=== PATIENT | female | born 1970 | race Caucasian/White ===

== ENCOUNTER 2018-11-19 16:03 | Emergency (ER) | payer SELFPAY ==
--- NOTE | 2018-11-19 16:20 | PDOC ---
Rapid Medical Evaluation Chief Complaint: Eye Problem Time Seen by Provider: 11/19/18 16:18 Medical Evaluation: I have performed a brief in-person evaluation of this patient. The patient presents with a chief complaint of: L eye redness, tearing x 3 eyes ; slight itching of eye Pertinent physical exam findings: +injected L eye I have ordered the following: Nothing The patient will proceed to the ED for further evaluation. 11/19/18 16:19 Discharge Disposition - Discharge Dispostion Condition at time of disposition: Stable - Referrals - Patient Instructions - Post Discharge Activity
[2018-11-19 16:21] VITALS: BP 117/75; PULSE 73; TEMP 98; BMI 20.8
--- NOTE | 2018-11-19 16:35 | PDOC ---
History of Present Illness - General Chief Complaint: Eye Problem Stated Complaint: EYE PROBLEM Time Seen by Provider: 11/19/18 16:18 History Source: Patient Exam Limitations: No Limitations - History of Present Illness Initial Comments: 11/19/18 16:34 Pt is a 48 y/o F who presents with L eye redness, tearing, and itching for three days. Pt states that she felt like she had something stuck in her eye. States that she is sensitive to light. Denies fever, chill, pain with eye movements, visual changes. Past History - Travel Traveled outside of the country in the last 30 days: No Close contact w/someone who was outside of country & ill: No - Past Medical History Allergies/Adverse Reactions: Allergies Allergy/AdvReac Type Severity Reaction Status Date / Time No Known Allergies Allergy Verified 11/19/18 16:21 Home Medications: Ambulatory Orders Erythromycin 0.5% Eye Ointment [Erythromycin 0.5% Eye Ointment -] 1 applic OS TID #1 tube 11/19/18 COPD: No Disorders: No Kidney Stones: No - Surgical History Appendectomy: No Gastric Stapling: No - Immunization History Immunization Up to Date: No - Suicide/Smoking/Psychosocial Hx Smoking History: Never smoked Have you smoked in the past 12 months: No Information on smoking cessation initiated: No Hx Alcohol Use: No Drug/Substance Use Hx: No Review of Systems - Review of Systems Able to Perform ROS?: Yes Comments:: 11/19/18 16:35 CONSTITUTIONAL: Absent: fever, chills, diaphoresis, generalized weakness, malaise, loss of appetite HEENT: Present: L eye itching and tearing Absent: rhinorrhea, nasal congestion, throat pain, throat swelling, difficulty swallowing, mouth swelling, ear pain, eye pain , visual Changes CARDIOVASCULAR: Absent: chest pain, loss of consciousness, palpitations, irregular heart rate, peripheral edema RESPIRATORY: Absent: cough, shortness of breath, dyspnea with exertion, orthopnea, wheezing, stridor, hemoptysis GASTROINTESTINAL: Absent: abdominal pain, abdominal distension, nausea, vomiting, diarrhea, constipation, melena, hematochezia GENITOURINARY: Absent: dysuria, frequency, urgency, hesitancy, hematuria, flank pain, genital pain MUSCULOSKELETAL: Absent: myalgia, arthralgia, joint swelling SKIN: Absent: rash, itching, pallor HEMATOLOGIC/IMMUNOLOGIC: Absent: easy bleeding, easy bruising, lymphadenopathy, frequent infections ENDOCRINE: Absent: unexplained weight gain, unexplained weight loss, heat intolerance, cold intolerance NEUROLOGIC: Absent: headache, focal weakness or paresthesias, dizziness, unsteady gait, seizure, mental status changes, bladder or bowel incontinence PSYCHIATRIC: Absent: anxiety, depression, suicidal or homicidal ideation, hallucinations. Is the patient limited Beninese proficient: No *Physical Exam - Vital Signs Last Vital Signs Temp Pulse Resp BP Pulse Ox 98.0 F 73 18 117/75 100 11/19/18 16:19 11/19/18 16:19 11/19/18 16:19 11/19/18 16:19 11/19/18 16:19 - Physical Exam Comments: 11/19/18 16:35 GENERAL: The patient is awake, alert, and fully oriented, in no acute distress. HEAD: Normal with no signs of trauma. EYES: Pupils equal, round and reactive to light, extraocular movements intact, sclera anicteric, L conjunctiva injected. L Flouorscein stain positive for corneal abrasion to the 3 o clock positions. R eye is normal EXTREMITIES: Normal range of motion, no edema. NEUROLOGICAL: Normal speech, normal gait. PSYCH: Normal mood, normal affect. SKIN: Warm, Dry, normal turgor, no rashes or lesions noted. Moderate Sedation - Procedure Monitoring Vital Signs: Procedure Monitoring Vital Signs Temperature 98.0 F 11/19/18 16:19 Pulse Rate 73 11/19/18 16:19 Respiratory Rate 18 11/19/18 16:19 Blood Pressure 117/75 11/19/18 16:19 O2 Sat by Pulse Oximetry (%) 100 11/19/18 16:19 Medical Decision Making - Medical Decision Making 11/19/18 19:49 PT is a 48 y/o F presenting for a L eye pain for 3 days + corneal abrasion on the L eye Will treat with erythromycin ointment DC home with ophthalmology follow up I discussed the physical exam findings, ancillary test results and final diagnoses with the patient. I answered all of the patient's questions. The patient was satisfied with the care received and felt comfortable with the discharge plan and treatment plan. The Patient agrees to follow up with the primary care physician/specialist within 24-72 hours. Return precautions were given. *DC/Admit/Observation/Transfer Diagnosis at time of Disposition: Corneal abrasion Qualifiers: Encounter type: initial encounter Laterality: left Qualified Code(s): S05.02XA - Injury of conjunctiva and corneal abrasion without foreign body, left eye, initial encounter - Discharge Dispostion Disposition: HOME Condition at time of disposition: Stable Decision to Admit order: No - Prescriptions Prescriptions: Erythromycin 0.5% Eye Ointment [Erythromycin 0.5% Eye Ointment -] 1 applic OS TID #1 tube - Referrals Referrals: Gale Figueroa MD [Staff Physician] - Justin Lucas MD [Staff Physician] - ON STAFF,NOT [Primary Care Provider] - - Patient Instructions Printed Discharge Instructions: DI for Corneal Abrasion Additional Instructions: You have a corneal abrasion on your L eye Use the eye ointment three times a day Follow up with ophthalmology tomorrow Return to the ED for any new or worsening symptoms - Post Discharge Activity Forms/Work/School Notes: Back to Work
[2018-11-19] MEDS ORDERED: TETRACAINE 0.5% OPHTH SOLN 2 ML BOTTLE OS ONE (16:49)
== END 2018-11-19 17:25 | disposition home or self-care (01) ==
LOC: JERFT 16:03
DX: S05.02XA Injury of conjunctiva and corneal abrasion without foreign body, left eye, initial encounter (principal); X58.XXXA Exposure to other specified factors, initial encounter; Y93.89 Activity, other specified; Y92.89 Other specified places as the place of occurrence of the external cause
CPT/HCPCS: 99281-25

== ENCOUNTER 2022-11-21 20:00 | Emergency (ER) | payer OTHER ==
[2022-11-21 20:27] VITALS: BP 105/77; PULSE 86; RESP 20; TEMP 99.8; BMI 24.4
== END 2022-11-21 22:44 | disposition home or self-care (01) ==
LOC: JER 20:00
DX: J09.X2 Influenza due to identified novel influenza A virus with other respiratory manifestations (principal)
CPT/HCPCS: 0241U-QW; 99283-25

== ENCOUNTER 2024-02-13 05:18 | Emergency (ER) | payer OTHER ==
[2024-02-13 05:30] VITALS: BP 129/80; PULSE 67; RESP 20; TEMP 98; BMI 22.6
[2024-02-13] MEDS ORDERED: ACETAMINOPHEN 500 MG TABLET (FP) ONE (06:05)
[2024-02-13] MEDS: ACETAMINOPHEN 500 MG TABLET (FP) PO ONE (06:15)
== END 2024-02-13 06:42 | disposition home or self-care (01) ==
LOC: JER 05:18
DX: S60.943A Unspecified superficial injury of left middle finger, initial encounter (principal); M79.645 Pain in left finger(s); M79.89 Other specified soft tissue disorders; V89.2XXA Person injured in unspecified motor-vehicle accident, traffic, initial encounter
CPT/HCPCS: 73140-TC-LT-FY; 99283-25